=== PATIENT | male | born 1960 | race Caucasian/White ===

== ENCOUNTER → 2024-02-15 | Outpatient (CLI) | payer BC ==
[2024-02-15 11:43] VITALS: BP 112/71; PULSE 89; RESP 20; TEMP 97.9
--- NOTE | 2024-02-15 11:58 | P.SLEEP ---
History of Present Illness DATE: 02/15/2024 CONSULTATION/NEW PATIENT EVALUATION HISTORY OF PRESENT ILLNESS/SLEEP-WAKE EVALUATION: 63-year-old gentleman had b een evaluated in the sleep center for possible obstructive sleep apnea hypopnea syndrome. Patient has history of obstructive sleep apnea hypopnea syndrome before, was on treatment with CPAP, last usage in 2019. SLEEP SCHEDULE: Usually sleep schedule from 9 PM to 5 AM on weekdays and from 1011 PM to 7 AM on weekend. FALLING ASLEEP: No problems with falling asleep. DURING SLEEP: According to patient presently no snoring, he wakes up from sleep once with nocturia. No history of hypnogogical hallucinations, sleep paralysis, or cataplexy. DURING THE DAY/WAKE STATE: Patient denied significant excessive daytime sleepiness. [place] sleepiness scale is 1. Patient takes 1 nap in the middle of the day. PAST MEDICAL HISTORY: Hypertension, allergy, sinuses problems, hyperlipidemia. PAST SURGICAL HISTORY: None. MEDICATIONS: Please see below. SOCIAL HISTORY: Please see below. FAMILY HISTORY: Sleep apnea, heart problems, cancer, diabetes. REVIEW OF SYSTEMS: Occasional awakenings from sleep. No fevers. No double vision. No recent chest pain. No shortness of breath. No abdominal pain. No bleeding episodes. No blood in urine. No seizure episodes. PHYSICAL EXAMINATION: GENERAL: A pleasant patient without any distress. VITAL SIGNS: Please see below, weight 249.6 pounds, BMI 36.7. HEENT: PERRLA, EOMI. Evaluation of oropharynx showed tongue protrudes midline, low position of soft palate Mallampati 4. NECK: Supple. No JVD. Thyroid is not palpable. 18-1/4 inches in circumference. LUNGS: Clear to percussion and to auscultation. Good air exchange. No wheezing or rhonchi. HEART: S1, S2 regular. No murmurs, gallops or rubs. ABDOMEN: Soft and nontender. Bowel sounds are present. No organomegaly appreciated. EXTREMITIES: No clubbing or cyanosis. 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 Cranial nerves 2 to 7 intact. There is no fasciculation or atrophy noted. No focal deficits observed. ASSESSMENT: 1. History of obstructive sleep apnea diagnosed in another institution and treated before, last usage of CPAP in 2019. Extremely low position of soft palate Mallampati 4, wide neck 18-1/4 inches in circumference. Obstructive sleep apnea hypopnea syndrome. 2. Obesity, BMI 36.7. 3. Hypertension. 4. Hyperlipidemia. 5 allergy. 6 . Sinus problems. 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 PLAN: 1. Home sleep apnea test for evaluation of patient's breathing during sleep. 2. Following plan after reading sleep study. 3. Preferable position during sleep on the side. 4. No driving if patient feels any sleepiness. Patient is aware of civil and criminal liability for unsafe driving. 5. Sleep hygiene with regular sleep time for at least 7.5-8 hours. 6. Watching weight. Thank you very much for referring this patient for consultation. Sincerely, Rajendra Nava MD, PhD, FAASM. Diplomat of [place] [employer], Sleep Medicine Board by [place] [employer] [place] [employer] Accounting Generalist of [facility] [place] Past Medical History Past Medical History: Hypertension Additional Past Medical History / Comment(s): HIGH CHOLESTEROL AND ALLERGIES History of Any Multi-Drug Resistant Organisms: None Reported Past Surgical History: Adenoidectomy, Tonsillectomy Past Psychological History: No Psychological Hx Reported Smoking Status: Current every day smoker Past Alcohol Use History: None Reported Past Drug Use History: None Reported - Past Family History Father Family Medical History: Diabetes Mellitus, Hyperlipidemia, Hypertension Additional Family Medical History / Comment(s): MOM - EMPHYSEMA, INSOMNIA, CANCER (BROTHER AND SISTER HAD CANCER) Brother(s) Additional Family Medical History / Comment(s): SLEEP APNEA, ALCOHOLIC, SMOKER, Medications and Allergies Home Medications Medication Instructions Recorded Confirmed Type Cholecalciferol (Vitamin D3) 125 mcg PO DAILY 02/15/24 02/15/24 History [Vitamin D3 (125 MCG = 5,000 IU)] Ezetimibe [Zetia] 10 mg PO DAILY 02/15/24 02/15/24 History Metoprolol Succinate [Metoprolol 25 mg PO DAILY 02/15/24 02/15/24 History Succinate ER] Triamterene/Hydrochlorothiazid 37.5 mg PO DAILY 02/15/24 02/15/24 History [Triamterene-Hctz 37.5-25 mg Cp] Physical Exam Vitals: Vital Signs Temp Pulse Resp BP Pulse Ox 02/15/24 11:25 97.9 F 89 20 112/71 97 Intake and Output 02/14/24 02/15/24 02/15/24 22:59 06:59 14:59 Other: Weight 113.115 kg Sleep Note - Sleep Data ESS Total: 1 - Sleep Note Sleep Note: Temperature: 97.9 F Pulse Rate: 89 Respiratory Rate: 20 Blood Pressure: 112/71 SpO2: 97 Height: 5 ft 9 in Weight: 113.115 kg BMI: Neck Circumference: 18.2
== END ==
LOC: 3 N SLEEP 10:43
PROVIDERS: ATTEND Internal Medicine
DX: G47.33 Obstructive sleep apnea (adult) (pediatric) (principal); E66.9 Obesity, unspecified; I10 Essential (primary) hypertension; E78.5 Hyperlipidemia, unspecified; J34.89 Other specified disorders of nose and nasal sinuses; Z68.36 Body mass index [BMI] 36.0-36.9, adult
CPT/HCPCS: 99202

== ENCOUNTER → 2024-02-21 | Outpatient (CLI) | payer BC ==
--- NOTE | 2024-02-22 10:56 | P.PCN ---
Description of Procedure: CLINICAL: A home sleep apnea test has been done for confirmation of possible obstructive sleep apnea-hypopnea syndrome. DESCRIPTION OF PROCEDURE: RESULTS: Recording time was 6 hours 37 minutes. Evaluation time was 6 hours 25 minutes. Evaluation time is sufficient for making conclusion about results of the test. Raw data of sleep recording has been reviewed and is adequate. Respiratory channel showed 352 apneas and 92 hypopneas. Apnea-hypopnea index was 69.2 per hour. Pulse rate in the range between minimum 40, maximum 76, average 54 by computer calculation. Lowest desaturation was 69%. IMPRESSION: 1. Severe Obstructive Sleep Apnea Hypopnea Syndrome with severe oxygen desaturation. Please see other impressions from consultation. PLAN: 1. The patient should have PAP titration for correction of respiratory abnormallities during sleep. 2. Sleep hygiene with regular time in bed for at least 8 hours. 3. Watching and losing weight. 4. No driving if feeling any sleepiness. Thank you very much for allowing me to participate in the management of your patient. Sincerely, Rajendra Nava MD, PhD, FAASM Diplomat of [place] [employer] Sleep Medicine Board of [place] [employer] Medicine Automotive Technician Instructor of [facility] [place]
== END ==
LOC: 3 N SLEEP 10:49
PROVIDERS: ATTEND Internal Medicine
DX: G47.33 Obstructive sleep apnea (adult) (pediatric) (principal); G47.36 Sleep related hypoventilation in conditions classified elsewhere

== ENCOUNTER 2024-04-11 19:32 | Outpatient (CLI) | payer BC ==
--- NOTE | 2024-04-12 10:21 | P.PCN ---
Description of Procedure: CLINICAL: Titration with positive air pressure has been done for correction of respiratory abnormalities during sleep. DESCRIPTION OF PROCEDURE: The standard montage for clinical polysomnography included the electroencephalogram, the electrocardiogram, the mentalis surface electromyography and Lead II cardiography. The respiratory battery consisted of measurements of nasal /buccal air flow, pressure transducer measurements from the nose, thoracic and /or abdominal effort and intercostal surface electromyography. Video monitoring has been done to check for any parasomnia events. Nocturnal oxyhemoglobin saturations were obtained by finger oximetry. Step-belle titration with positive airway pressure was utilized to control respiratory events. Raw data of sleep recording has been reviewed and is adequate. RESULTS: Sleep efficiency was extremely short 65.5%. Latency to sleep onset was significantly prolonged to 77.5 minutes.]. Sleep architecture showed stage N1 slightly increased to 9.9%, Delta sleep was absent 0%, REM sleep was short 15.7%. Heart rate was minimum 51 BPM, maximum 63 BPM, average 57 BPM. EMG showed 42.2 periodic limb movements per hour with 0.2 micriarousals per hour. PAP titration have been done with CPAP up to the pressure 11 cm H2O. The best results were at the pressure 10 and 11 cm H2O. Apnea hypopnea index reduced to 0. IMPRESSION: 1. Severe obstructive sleep apnea hypopnea syndrome on controle with PAP treatment. 2. Significant periodic limb movements have been documented. Please see other impressions from consultation. PLAN: 1. The patient will have treatment with positive air pressure equipment with the level of pressure AutoPAP 5-12 cm H2O and should use it every night for the whole night. 2. Watching and losing weight. 3. Sleep hygiene with regular time in bed for at least 8 hours. 4. No driving if feeling any sleepiness. 5. I will see the patient for follow up visit to explain the results of the test, recommendations, check compliance with treatment and make any necessary adjustment related to mask fitting, pressure and humidification. 6. Please check iron profile including ferritin level. Low level of iron may increase risk for periodic limb movements. Thank you very much for allowing me to participate in the management of your patient. Sincerely, Rajendra Nava MD, PhD, FAASM Diplomat of [place] [employer] Sleep Medicine Board of [place] [employer] Medicine Audiometrist of [facility] [place] cc: Sapna Hassan MD
== END 2024-04-12 05:45 | disposition home or self-care (01) ==
LOC: 3 N SLEEP 19:32
PROVIDERS: ATTEND Internal Medicine
DX: G47.33 Obstructive sleep apnea (adult) (pediatric) (principal); G47.61 Periodic limb movement disorder
CPT/HCPCS: 95811

== ENCOUNTER → 2024-07-18 | Outpatient (CLI) | payer BC ==
[2024-07-18 10:46] VITALS: BP 123/73; PULSE 92; RESP 16; TEMP 98.2
--- NOTE | 2024-07-18 11:38 | P.PROGSL ---
Subjective DATE: 07/18/2024 FOLLOW UP VISIT. Patient with obstructive sleep apnea hypopnea syndrome return to sleep center for follow-up visit. Recently patient had sleep study and explained results of sleep studies to patient in details. It showed severe obstructive sleep apnea hypopnea syndrome. Patient received new CPAP unit. Today is his first visit after he started to use this CPAP equipment. Information from previous visit have been reviewed. Patient is using PAP equipment every night for the whole night, getting PAP supplies in time. The patient does not have significant problems with the mask, PAP unit and humidification. [place] sleepiness scale is 0. I checked information from PAP unit. PAP unit pressure 5-12, average 11 cm H2O. Usage is 90% for more then 4 hours, average 8 hours per night. Leak is 0 l/m, which is perfect. Apnea Hypopnea Index is 0.5, which is normal. MEDICATIONS have been reviewed, please see below. During physical exam: GENERAL: A pleasant patient without any distress. VITAL SIGNS: Please see below, weight is 257 cm lbs. HEENT: PERRLA, EOMI.low position of soft palate, Mallapati 4 . NECK: Supple. No JVD. LUNGS: Clear to percussion and to auscultation. Good air exchange. No wheezing or rhonchi. HEART: S1, S2 regular. ABDOMEN: Soft and nontender.[] EXTREMITIES: No clubbing or cyanosis. 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 No focal deficit. Impressions: 1. Obstructive sleep apnea-hypopnea syndrome. Patient demonstrated great compliance with treatment, benefiting from treatment. 2. Obesity. 3. Hypertension. 4. Hyperlipidemia. 5. Allergy. 6. History of sinuses problems. 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 Plan: 1. Continue using PAP equipment every night for the whole night. 2. Sleep hygiene with regular time in bed for at least 7.5-8 hours 3. PAP unit should stay lower then position of the head. 4. Advised patient to remove all remaining water from humidifier canister daily and make it dry after each usage. Refill canister with fresh distilled water before each usage. 5. Watching weight. 6. Precautions related to driving. No driving if feel any sleepiness. Patient is aware about [place] and criminal liability for unsafe driving. 7. I will maintain prescription for PAP supplies including mask, tube, filters. 8. Follow up visit in 6 months or earlier if patient has any problems. Thank you very much for allowing me to participate in the management of your patient. Rajendra Nava MD, PhD, FAASM. Diplomat of [place] [employer], Sleep Medicine Board by [place] [employer] Fructose Loader of [facility] [place] cc: Sapna Hassan MD Objective - Vital Signs Vital Signs: Vital Signs Temp 98.2 F 07/18/24 10:45 Pulse 92 07/18/24 10:45 Resp 16 07/18/24 10:45 BP 123/73 07/18/24 10:45 Pulse Ox 93 L 07/18/24 10:45 FiO2 Intake & Output 07/17/24 07/18/24 07/18/24 18:59 06:59 18:59 Weight 116.573 kg Home Medications: Home Medications Medication Instructions Recorded Confirmed Type Cholecalciferol (Vitamin D3) 125 mcg PO DAILY 02/15/24 02/15/24 History [Vitamin D3 (125 MCG = 5,000 IU)] Ezetimibe [Zetia] 10 mg PO DAILY 02/15/24 02/15/24 History Metoprolol Succinate [Metoprolol 25 mg PO DAILY 02/15/24 02/15/24 History Succinate ER] Triamterene/Hydrochlorothiazid 37.5 mg PO DAILY 02/15/24 02/15/24 History [Triamterene-Hctz 37.5-25 mg Cp]
== END ==
LOC: 3 N SLEEP 10:28
PROVIDERS: ATTEND Internal Medicine
CPT/HCPCS: 99212

== ENCOUNTER → 2025-03-20 | Outpatient (CLI) | payer BC ==
[2025-03-20 10:58] VITALS: BP 135/80; PULSE 96; RESP 16; TEMP 98.1
--- NOTE | 2025-03-20 11:33 | P.PROGSL ---
Subjective DATE: 03/20/2025 FOLLOW UP VISIT. Patient with obstructive sleep apnea hypopnea syndrome return to sleep center for follow-up visit. Information from previous visit have been reviewed. Patient is using PAP equipment every night for the whole night, getting PAP supplies in time. The patient does not have significant problems with the mask, PAP unit and humidification. [place] sleepiness scale is 1, which is perfect. I checked information from PAP unit. PAP unit pressure 5-12, LH 11.7 cm H2O. Usage is 100% for more then 4 hours, average 7.8 hours per night. Leak is 2 l/m, which is in acceptable range. Apnea Hypopnea Index is 1.4, which is normal. MEDICATIONS have been reviewed, please see below. During physical exam: GENERAL: A pleasant patient without any distress. VITAL SIGNS: Please see below, weight is 269 lbs. HEENT: PERRLA, EOMI.low position of soft palate, Mallapati 4 . NECK: Supple. No JVD. LUNGS: Clear to percussion and to auscultation. Good air exchange. No wheezing or rhonchi. HEART: S1, S2 regular. ABDOMEN: Soft and nontender.[] EXTREMITIES: No clubbing or cyanosis. SOLDERER: Awake, alert, and oriented x3. No focal deficit. Impressions: 1. Obstructive sleep apnea-hypopnea syndrome. Patient demonstrated great compliance with treatment, benefiting from treatment. 2. Obesity, BMI 39, patient increased weight on 12 pounds comparing with the previous visit. 3. Hypertension. 4. Hyperlipidemia. 5. Allergy. 6. History of sinus problems. 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 Plan: 1. Continue using PAP equipment every night for the whole night. 2. Sleep hygiene with regular time in bed for at least 7.5-8 hours 3. PAP unit should stay lower then position of the head. 4. Advised patient to remove all remaining water from humidifier canister daily and make it dry after each usage. Refill canister with fresh distilled water before each usage. 5. Watching and losing weight. 6. Precautions related to driving. No driving if feel any sleepiness. 7. I will maintain prescription for PAP supplies including mask, tube, filters. 8. Follow up visit in 8 months or earlier if patient has any problems. Thank you very much for allowing me to participate in the management of your patient. Rajendra Nava MD, PhD, FAASM. Diplomat of [place] [employer], Sleep Medicine Board by [place] [employer] Ict Sales Assistant of [facility] [place] Objective - Vital Signs Vital Signs: Vital Signs Temp 98.1 F 03/20/25 10:56 Pulse 96 03/20/25 10:56 Resp 16 03/20/25 10:56 BP 135/80 03/20/25 10:56 Pulse Ox 96 03/20/25 10:56 FiO2 Intake & Output 03/19/25 03/20/25 03/20/25 18:59 06:59 18:59 Weight 122.016 kg Home Medications: Home Medications Medication Instructions Recorded Confirmed Type Cholecalciferol (Vitamin D3) 125 mcg PO DAILY 02/15/24 03/20/25 History [Vitamin D3 (125 MCG = 5,000 IU)] Ezetimibe [Zetia] 10 mg PO DAILY 02/15/24 03/20/25 History Metoprolol Succinate [Metoprolol 25 mg PO DAILY 02/15/24 03/20/25 History Succinate ER] Triamterene/Hydrochlorothiazid 37.5 mg PO DAILY 02/15/24 03/20/25 History [Triamterene-Hctz 37.5-25 mg Cp] Cyclobenzaprine [Flexeril] 10 mg PO DIRECTED PRN 03/20/25 03/20/25 History
== END ==
LOC: 3 N SLEEP 10:44
PROVIDERS: ATTEND Internal Medicine
DX: G47.33 Obstructive sleep apnea (adult) (pediatric) (principal); E66.9 Obesity, unspecified; I10 Essential (primary) hypertension; E78.5 Hyperlipidemia, unspecified; T78.40XA Allergy, unspecified, initial encounter; Z99.89 Dependence on other enabling machines and devices; Z68.39 Body mass index [BMI] 39.0-39.9, adult; Z87.09 Personal history of other diseases of the respiratory system
CPT/HCPCS: 99212